=== PATIENT | female | born 1950 | race Caucasian/White ===

== ENCOUNTER → 2017-11-16 | Outpatient (CLI) | payer MEDICARE ==
[~2017-11-16] MED LIST: BACTRIM DS TAB1 EACH PO; BACTROBAN15 GM TOP; CELEBREX PO; CELEBREX200 MG PO; CEPHALEXIN500 MG PO; CLEOCIN HCL150 MG PO; CYMBALTA30 MG PO; FOLIC ACID0.4 MG PO; HYDROCODON-ACE1 EACH PO; HYDROXYCHLOROQ100 GM PO; LORAZEPAM INJ 2 MG/ML VIAL ONE; LOSARTAN PO; LOSARTAN POTASS50 MG PO; LYRICA PO; LYRICA75 MG PO; METHOTREXATE PO; REMICADE PO
--- NOTE | 2017-11-16 17:03 | Diagnostic Imaging Report ---
EXAMINATION: MRI of the brain without contrast. HISTORY: Loss of balance COMPARISON: None. TECHNIQUE: Sagittal T2; axial DWI, T2, FLAIR, T1-IR, T2 gradient echo; coronal FLAIR. IMAGE QUALITY: Motion artifact limits evaluation of some of the sequences in spite of sedation. FINDINGS: Parenchyma: 1. A few scattered and mildly confluent periventricular white matter T2 and FLAIR hyperintense foci , most likely nonspecific chronic microvascular ischemic changes. 2. No mass, hemorrhage, acute or chronic infarcts. Skull: Unremarkable. Vessels: Expected flow voids present in the major arteries and dural sinuses. Extra-axial spaces: No abnormal signal intensity or mass effect. Brain volume: Within normal limits for age. Ventricles: No hydrocephalus or displacement. Foramen magnum: Unremarkable. Sella: Unremarkable. Paranasal / mastoid sinuses: No significant inflammatory disease. IMPRESSION: Suboptimal study due to motion, mild chronic microvascular ischemic changes. No acute infarcts. Signed by: Dr. Heather Navarro M.D. on 11/16/2017 5:00 PM
== END ==
LOC: MRI 11:38
PROVIDERS: ATTEND Specialist
DX: R26.81 Unsteadiness on feet (principal)
CPT/HCPCS: 70551; J2060

== ENCOUNTER 2018-06-28 10:00 | Outpatient (RCR) | payer MEDICARE ==
[~2018-06-28 10:00] MED LIST changes: -LORAZEPAM INJ 2 MG/ML VIAL ONE
== END 2018-07-04 ==
LOC: PT 10:00
PROVIDERS: ATTEND Physical Medicine & Rehabilitation Pain Medicine
DX: M46.1 Sacroiliitis, not elsewhere classified (principal); M54.16 Radiculopathy, lumbar region; M54.5 Low back pain; M53.88 Other specified dorsopathies, sacral and sacrococcygeal region; M62.81 Muscle weakness (generalized)
CPT/HCPCS: 97110 ×4; 97162; G8978; G8979

== ENCOUNTER 2018-07-16 10:59 | Outpatient (RCR) | payer MEDICARE | END 2018-08-04 | LOC: PT 10:59 | PROVIDERS: ATTEND Physical Medicine & Rehabilitation Pain Medicine | DX: M46.1 Sacroiliitis, not elsewhere classified (principal); M54.16 Radiculopathy, lumbar region; M54.5 Low back pain; M53.87 Other specified dorsopathies, lumbosacral region; M62.81 Muscle weakness (generalized) | CPT/HCPCS: 97110 ×4; 97139; 97140; G8979; G8980 ==

== ENCOUNTER → 2025-05-09 | Outpatient (REF) | payer MEDICARE ==
[~2025-05-09] MED LIST changes: +BENICAR20 MG PO; +GABAPENTIN300 MG PO; +LASIX20 MG PO; +OMEPRAZOLE40 MG PO
== END ==
LOC: US 08:02
PROVIDERS: ATTEND Internal Medicine
DX: E04.2 Nontoxic multinodular goiter (principal)
CPT/HCPCS: 10005; 88112; 88172; 88173; 88305